=== PATIENT | male | born 1990 | race Caucasian/White ===

== ENCOUNTER 2022-12-11 09:47 | Emergency (ER) | payer MEDICAID, SELFPAY ==
[2022-12-11 09:57] VITALS: BP 140/93; PULSE 85; RESP 16; TEMP 36.6; O2SAT 99; BMI 24.4
--- NOTE | 2022-12-11 10:45 | ED_ITS ---
HPI - Nausea/Vomiting/Diarrhea General: Chief complaint: Nausea/Vomiting/Diarrhea Stated complaint: Detoxing with methidone, NVD Time Seen by Provider: 12/11/22 10:13 History of Present Illness: 32-year-old male presents emergency department with complaints of several episodes of nausea and vomiting. 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 He states he has also had several episodes of diarrhea. He denies chest pain or shortness of breath. He states that nothing seems to make his nausea and vomiting better nothing seems to make it worse. Associated nausea: Yes Associated symtoms: Reports nausea Review of Systems General: Reports: 10 or more systems reviewed and unremarkable except in HPI and below GI: Reports: nausea, vomiting and diarrhea Physical Exam Const: COMMON NORMALS: no acute distress, patient oriented x3 and alert HENMT: COMMON NORMALS: normocephalic, atraumatic and Normal nasal mucous membranes and turbinates present HEAD & SCALP: normocephalic and atraumatic NOSE: Normal nasal mucous membranes and turbinates present Eye: COMMON NORMALS: Equal, round and reactive pupils present and EOMs intact bilaterally PUPIL: Yes Equal, round and reactive pupils present Neck/C-Spine: COMMON NORMALS: full ROM, no lymphadenopathy, no meningeal signs and no JVD Resp: COMMON NORMALS: normal respiratory effort and clear to auscultation bilaterally AUSCULTATION: clear to auscultation bilaterally Cardio: COMMON NORMALS: no JVD, regular rate, S1 normal heart sound present, S2 normal heart sound present and Peripheral pulses 2+ throughout; negative for No gallops present (Cardio), negative for No clicks present (Cardio ), negative for No murmurs present (Cardio) and negative for No rub (Cardio) RATE: regular rate HEART SOUNDS: S1 normal heart sound present and S2 normal heart sound present PERIPHERAL PULSES: Peripheral pulses 2+ throughout GI: COMMON NORMALS: Normal to inspection, nondistended, normoactive bowel sounds present, Soft to palpation and non-tender PALPATION: Yes Soft to palpation : COMMON NORMALS: Yes no CVA tenderness BLADDER/KIDNEY EXAM: Yes no CVA tenderness Back/Pelvis: COMMON NORMALS: no CVA tenderness Neuro: COMMON NORMALS: patient oriented x3, CN's II-XII intact bilaterally, moves all extremities and no sensory deficits noted SENSORIUM/ORIENTATION: Yes alert MENINGEAL SIGNS: Yes no meningeal signs Psych: COMMON NORMALS: mental status grossly normal, Normal thought process present and cooperative THOUGHT PROCESS: Normal thought process present Skin: COMMON NORMALS: no rashes or lesions noted GENERAL SKIN EXAM: no rashes or lesions noted Course Vital Signs: Vital signs: Vital Signs Temperature 97.8 F 12/11/22 09:57 Pulse Rate 88 12/11/22 12:21 Respiratory Rate 16 12/11/22 12:21 Blood Pressure 140/93 12/11/22 12:21 Pulse Oximetry 100 12/11/22 12:21 Oxygen Delivery Me thod Room Air 12/11/22 10:49 MDM - Nausea/Vomiting/Diarrhea Medical Decision Making Physical exam completed and documented, I have provided the patient IV fluid rehydration as well as antinausea medications. I will discharge him home with antinausea medications as well. I have requested that the nursing staff provide him with community resources to help him with his detox from methadone. Lab Data I reviewed the patient's lab results. 12/11/22 10:16 12/11/22 10:16 Laboratory Results WBC 9.02 10^3/uL (3.29-11.43) 12/11/22 10:16 RBC 5.98 10^6/uL (3.85-5.65) H 12/11/22 10:16 Hgb 18.10 g/dL (11.27-16.99) H 12/11/22 10:16 Hct 52.2 % (37-53) 12/11/22 10:16 MCV 87.3 fl (82-101) 12/11/22 10:16 MCH 30.3 pg (27-33) 12/11/22 10:16 MCHC 34.7 g/dL (30-55) 12/11/22 10:16 RDW 12.7 % (12.1-15.1) 12/11/22 10:16 Plt Count 247 10^3/cmm (157-399) 12/11/22 10:16 MPV 10.6 fL (7.4-10.4) H 12/11/22 10:16 Neut % (Auto) 82.6 % 12/11/22 10:16 Lymph % (Auto) 13.2 % 12/11/22 10:16 Falls % (Auto) 3.5 % 12/11/22 10:16 Eos % (Auto) 0.1 % 12/11/22 10:16 Baso % (Auto) 0.3 % 12/11/22 10:16 Neut # (Auto) 7.44 10^3/uL (1.8-7.7) 12/11/22 10:16 Lymph # (Auto) 1.2 10^3/uL (0.8-4.8) 12/11/22 10:16 Falls # (Auto) 0.3 10^3/uL (0.2-0.9) 12/11/22 10:16 Eos # (Auto) 0.0 10^3/uL (0.0-0.8) 12/11/22 10:16 Baso # (Auto) 0.0 10^3/uL (0.0-0.1) 12/11/22 10:16 Nucleated RBC % (auto) 0 % 12/11/22 10:16 Nucleated RBCs # 0.0 /100WBC 12/11/22 10:16 Sodium 139 mmol/L (136-145) 12/11/22 10:16 Potassium 4.3 mmol/L (3.5-5.1) 12/11/22 10:16 Chloride 97 mmol/L (98-107) L 12/11/22 10:16 Carbon Dioxide 28 mmol/L (22-29) 12/11/22 10:16 Anion Gap 18.3 (5-19) 12/11/22 10:16 BUN 20 mg/dL (6-20) 12/11/22 10:16 Creatinine 0.9 mg/dL (0.7-1.2) 12/11/22 10:16 GFR Calculation 97.2 mL/min (90-130) 12/11/22 10:16 Glucose 130 mg/dL (65-115) H 12/11/22 10:16 Calculated Osmolality 292 mOsm/kg (285-295) 12/11/22 10:16 Calcium 10.4 mg/dL (8.5-10.5) 12/11/22 10:16 Total Bilirubin 0.6 mg/dL (0.15-1.2) 12/11/22 10:16 AST 31 U/L (0-40) 12/11/22 10:16 ALT 47 U/L (0-41) H 12/11/22 10:16 Alkaline Phosphatase 148 U/L (40-130) H 12/11/22 10:16 Total Protein 8.8 g/dL (6.6-8.7) H 12/11/22 10:16 Albumin 5.4 g/dL (3.5-5.2) H 12/11/22 10:16 Globulin 3.4 g/dL (1.3-4.6) 12/11/22 10:16 Lipase 25 U/L (13-60) 12/11/22 10:16 No radiology studies performed this visit Discharge Plan Discharge Patient Disposition: Home Clinical Impression: Withdrawal from opioids Condition: Stable Prescriptions: New hydroxyzine HCl 25 mg tablet 25 mg PO Q8H PRN (Reason: itching) Qty: 20 0RF Discharge Orders: Discharge ED (Routine); Ordered 12/11/22 Ordered By: Bruce Julian Discharge Diet: Advance as tolerated Discharge Activity: Resume usual activity Patient Instructions: Narcotic Withdrawal (ED) Coding Level of Care Code ED [employer] for Natalie Butler
[2022-12-11 10:49] VITALS: BP 140/93; PULSE 88; RESP 16; O2SAT 100
[2022-12-11] MEDS: ondansetron 2 mg/ML SDV 2 mL 4 MG IVP (10:55)
[2022-12-11] MEDS: lactated ringers 1,000 ML 999 ML IV (10:55)
[2022-12-11 10:58] LABS: Basophils % 0.3 %; Eosinophils % 0.1 %; Hematocrit 52.2 % (37-53); Lymphocytes # 1.2 10^3/uL (0.8-4.8); Lymphocytes % 13.2 %; Mean Corpuscular HGB Conc 34.7 g/dL (30-55); Mean Corpuscular Hemoglobin 30.3 pg (27-33); Mean Corpuscular Volume 87.3 fl (82-101); Mean Platelet Volume 10.6 fL (7.4-10.4); Monocytes # 0.3 10^3/uL (0.2-0.9); Monocytes % 3.5 %; Neutrophils # 7.44 10^3/uL (1.8-7.7); Neutrophils % 82.6 %; Nucleated Red Blood Cells % 0 %; Platelet Count 247 10^3/cmm (157-399); Red Blood Count 5.98 10^6/uL (3.85-5.65); Red Cell Distribution Width 12.7 % (12.1-15.1); White Blood Count 9.02 10^3/uL (3.29-11.43)
[2022-12-11 11:07] LABS: Alanine Aminotransferase 47 U/L (0-41); Albumin Level 5.4 g/dL (3.5-5.2); Alkaline Phosphatase 148 U/L (40-130); Anion Gap 18.3 (5-19); Aspartate Amino Transferase 31 U/L (0-40); Blood Urea Nitrogen 20 mg/dL (6-20); Calcium 10.4 mg/dL (8.5-10.5); Carbon Dioxide 28 mmol/L (22-29); Chloride 97 mmol/L (98-107); Creatinine Clr Calc Pharmacy 134.5855; Globulin 3.4 g/dL (1.3-4.6); Glomerular Filtration Rate 97.2 mL/min (90-130); Glucose 130 mg/dL (65-115); Lipase 25 U/L (13-60); Osmolality Calculated 292 mOsm/kg (285-295); Potassium 4.3 mmol/L (3.5-5.1); Sodium 139 mmol/L (136-145); Total Bilirubin 0.6 mg/dL (0.15-1.2); Total Protein 8.8 g/dL (6.6-8.7)
[2022-12-11 12:21] VITALS: BP 140/93; PULSE 88; RESP 16; O2SAT 100
== END 2022-12-11 12:23 | disposition home or self-care (01) ==
PROVIDERS: Emergency Provider Internal Medicine
DX: F11.23 Opioid dependence with withdrawal (principal)
CPT/HCPCS: 80053; 83690; 85025; 96374; 99284; J2405; J7120

== ENCOUNTER 2023-02-05 11:39 | Emergency (ER) | payer MEDICAID, SELFPAY ==
[2023-02-05 11:46] VITALS: BP 167/81; PULSE 76; RESP 18; TEMP 36.8; O2SAT 98; BMI 24.4
--- NOTE | 2023-02-05 12:41 | ED_ITS ---
HPI - Extremity Problem General: Chief complaint: Extremity Injury, Upper Stated complaint: right hand numb Time Seen by Provider: 02/05/23 12:17 Source: patient Mode of arrival: ambulatory Limitations: no limitations History of Present Illness: This patient presents to the emergency department because he is started to become more concerned about symptoms in his right hand and arm. He states that approximately 4 or 5 weeks ago thereabouts he in the course of his usual work activities he struck his right elbow on an object he is not sure exactly the mechanics and he thought he hit his funny bone . He states he had some numbness and tingling that went up his arm and down to his hand that was transient in nature and he went on about his usual work activities. Subsequently he is noted that he has recurrent and persistent pain and numbness in his fourth and fifth fingers of his right dominant hand. 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 He states he occasionally has pain and subjective sensation of swelling in his right forearm. He the pain that he exhibits is as in nature and seems to run up and down his arm and is aching at times. He denies any other symptoms. He has no skin changes, etc. 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 He otherwise is in good health takes no medications. Associated symptoms: Deny fever(s) or rash Review of Systems Const: Denies: fever(s) or chills Eyes: Denies: change in vision Resp: Denies: productive cough or non-productive cough Musc: Reports: extremity pain and muscle weakness; Denies: neck pain or back pain Skin/Breast: Denies: rash Neuro: Reports: sensory changes; Denies: headache(s) Sheldon/Lymph: Denies: easy bruising or easy bleeding Physical Exam Narrative: EXAM NARRATIVE: He appears to be in no acute distress cooperative and comfortable. Const: COMMON NORMALS: no acute distress, average body habitus and patient oriented x3 GENERAL APPEARANCE: cooperative, comfortable and well developed HENMT: COMMON NORMALS: normocephalic HEAD & SCALP: normocephalic Eye: COMMON NORMALS: Equal, round and reactive pupils present PUPIL: Yes Equal, round and reactive pupils present Neck/C-Spine: COMMON NORMALS: full ROM CERVICAL SPINE: No Cervical spine tenderness, No step off deformity, No Paracervical muscle tenderness, No Paracervical spasm and No Trapezius muscle tenderness Lymph: LYMPHATIC: no lymphadenopathy noted Resp: COMMON NORMALS: normal respiratory effort EFFORT & INSPECTION: Yes able to speak in complete sentences Cardio: COMMON NORMALS: Peripheral pulses 2+ throughout PERIPHERAL PULSES: Peripheral pulses 2+ throughout : COMMON NORMALS: Yes no CVA tenderness BLADDER/KIDNEY EXAM: Yes no CVA tenderness Back/Pelvis: COMMON NORMALS: no CVA tenderness, thoracic and lumbar spine normal to inspection, no thoracic nor lumbar tenderness and thoraco-lumbar ROM normal Extremity: COMMON NORMALS: normal to inspection, full ROM, capillary refill normal and no joint enlargement OTHER: Examination of the right upper extremity reveals to be grossly normal in a ppearance. He has normal range of motion at the shoulder elbow and wrist joint. Good capillary refill is noted. There is no joint effusions joint enlargement noted. No deformity noted. Neuro: COMMON NORMALS: patient oriented x3 and moves all extremities OTHER: Neurologic examination with attention to his right upper extremity reveals some diminished sensation to the lateral portion of the fifth and fourth fingers compared with the remainder of the hand. He does have what appears to be some diminished motor strength of the intrinsic muscles of the fourth and fifth fingers regarding abduction and abduction. He has no tenderness over the ulnar gutter along the course of the palpable ulnar nerve. He does have a positive Tinel and Phalen sign at the right wrist. Skin: COMMON NORMALS: no rashes or lesions noted, no wounds and turgor normal GENERAL SKIN EXAM: no rashes or lesions noted and turgor normal Course Vital Signs: Vital signs: Vital Signs Temperature 98.2 F 02/05/23 11:46 Pulse Rate 76 02/05/23 11:46 Respiratory Rate 18 02/05/23 11:46 Blood Pressure 167/81 02/05/23 11:46 Pulse Oximetry 98 02/05/23 11:46 Oxygen Delivery Me thod Room Air 02/05/23 11:46 MDM - Extremity (Nontraumatic) Medical Decision Making This patient presented to the emergency room because of concerns about persistent symptoms of his right upper extremity. He relates current onset of symptoms back to a work related activity when in he inadvertently struck his right elbow on an object while engage in normal work activities and felt like he had struck his funny bone but continued on with normal activities. 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 No other symptoms noted. No history of prior similar occurrences and he is right-handed. Clinical examination reveals some decreased sensation and suggestion of ulnar nerve neuropraxia. No evidence at this time to suggest a central cause, vascular pathology etc. at this time. The likely etiology and that sometimes the course is protracted and certain cases such as his. Plan will be to give him a short course of steroids have him use a wrist splint and a referral to orthopedic surgery. Return precautions discussed. He appreciated his care. 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 Condition: Stable Prescriptions: New prednisone 20 mg tablet 40 mg PO DAILY 7 Days Qty: 14 0RF No Action hydroxyzine HCl 25 mg tablet 25 mg PO Q8H PRN (Reason: itching) Qty: 20 0RF Discharge Orders: Discharge ED (Routine); Ordered 02/05/23 Ordered By: Jose Hunter Discharge Diet: Usual diet Discharge Activity: Limit activity as instructed Patient Instructions: Opioid Safety, Pain Management Activity Restrictions/Additional Instructions: As we discussed while you are in the emergency department we feel that your condition is related to a and inflammation of the ulnar nerve of your right arm likely as result of your trauma that you experience. As we discussed many times this will take weeks to months to recover. We have provided a short course of anti-inflammatory medication. We also recommend obtaining a simple wrist splint to wear at night to help reduce any traction on that nerve. We have also made a referral to orthopedic surgery for a follow-up. They should be contacting you with a appointment time. If you have any worsening symptoms or other concerns you are welcome to return to the emergency department at any time. Coding Level of Care Code ED [employer] for Natalei Butler
[2023-02-05 13:00] VITALS: PULSE 78; RESP 18; O2SAT 98
--- NOTE | 2023-02-07 00:01 | DCPLANNER ---
Message sent to Ortho for a follow up appointment - RT Arm neuropathy (ulnar)
== END 2023-02-05 13:01 | disposition home or self-care (01) ==
PROVIDERS: Emergency Provider Emergency Medicine
DX: G56.21 Lesion of ulnar nerve, right upper limb (principal)
CPT/HCPCS: 99283